=== PATIENT | female | born 1965 | race African-American/Black ===

== ENCOUNTER 2018-03-04 08:56 | Emergency (ER) | payer OTHER ==
[~2018-03-04] VITALS: Ht 180.3 cm; Wt 61.2 kg
--- NOTE | ~2018-03-04 | EKG ---
[place] [address] [facility] [place] [address] ELECTROCARDIOGRAM REPORT Name: ALLEN BEAVERS [facility] [id number] Admission: 03/04/18 Attend Phys: Discharge: Date of : 61 Report #: [id number] THIS REPORT FOR: //name// [facility] ED Test Date: 2018-03-04 Test Time: 09:17:00 Pat Name: ALLEN BEAVERS Department: Room: Gender: F [employer]or [employer] Rod: Kobe ORTEZ : 1965 Requested By: Bernie Bird Order Number: [id number] MD: Nicolás Ruggiero Measurements Intervals [place] Rate: 103 P: 86 SD: 172 QRS: 56 QRSD: 67 T: 45 QT: 314 QTc: 411 Interpretive Statements Sinus tachycardia Right atrial enlargement Consider right ventricular hypertrophy No previous ECG available for comparison Electronically Signed On 03-04-2018 10:24:03 CDT by Nicolás Ruggiero [email or web address] <ELECTRONICALLY SIGNED> By: Nicolás Ruggiero MD, [facility] 03/04/18 1024 [id number] [id number] Nicolás Ruggiero MD, FACC /EPI
[~2018-03-04 08:56] MED LIST: IBUPROFEN 800800 MG PO
[2018-03-04] MEDS ORDERED: ZOFRAN ODT4 MG PO ×2 (09:08→10:24)
[2018-03-04] MEDS ORDERED: PEPCID40 MG PO ×2 (09:08→10:24)
[2018-03-04 09:53] LABS: HEMATOCRIT 30.1 % (37.0-47.0); HEMOGLOBIN 9.2 gm/dL (12.0-15.0); MCH 19.4 pg (26.0-34.0); MCHC 30.5 g/dL (28.0-37.0); MCV 63.7 fL (80.0-100.0); PLATELET COUNT 146 thou/uL (150-400); RBC 4.73 mil/uL (4.20-5.00); RDW 16.3 % (10.5-14.5); WBC 11.3 thou/uL (4.0-11.0)
[2018-03-04 10:06] LABS: ANION GAP 8 mmol/L (7-16); BUN 25 mg/dL (7-18); CALCIUM 10.4 mg/dL (8.5-10.1); CHLORIDE 107 mmol/L (98-107); CO2 22 mmol/L (21-32); CREATININE 1.4 mg/dL (0.6-1.0); POTASSIUM 3.9 mmol/L (3.5-5.1); SODIUM 137 mmol/L (136-145)
[2018-03-04 10:09] LABS: TROPONIN-I < 0.04 ng/mL (<0.06)
[2018-03-04 10:15] LABS: GLUCOSE 107 mg/dL (74-106)
[2018-03-04 10:16] LABS: ABSOLUTE NEUTROPHILS 9.9 thou/uL (1.4-8.2); ANISOCYTOSIS 1+; HYPOCHROMASIA 2+; MICROCYTES 2+; PLATELET ESTIMATE NORMAL
[2018-03-04 11:46] VITALS: BP 96/71
== END 2018-03-04 11:51 | disposition home or self-care (01) ==
LOC: ER 08:56
PROVIDERS: Emergency Medicine
DX: I95.1 Orthostatic hypotension (principal); N28.9 Disorder of kidney and ureter, unspecified

== ENCOUNTER 2021-12-10 06:44 | Emergency (ER) | payer OTHER ==
[~2021-12-10] VITALS: Ht 180.3 cm; Wt 61.2 kg
[~2021-12-10 06:44] MED LIST changes: +PEPCID40 MG PO; +ZOFRAN ODT4 MG PO
--- NOTE | 2021-12-10 07:50 | EKG ---
[address] [place] [address] ELECTROCARDIOGRAM REPORT Name: ALLEN PINEDA [facility] [id number] Admission: 12/10/21 Attend Phys: Discharge: Date of : 61 Report #: [id number] [facility] ED Test Date: 2021-12-10 Test Time: 07:07:39 Pat Name: ALLEN PINEDA Department: Room: Gender: F Whipper: : 1965 Requested By: Dave Salcedo Order Number: [id number] MD: Waqas Torres Measurements Intervals [place] Rate: 71 P: 82 AL: 181 QRS: 31 QRSD: 72 T: 35 QT: 383 QTc: 417 Interpretive Statements Sinus rhythm Consider left atrial enlargement Compared to ECG 03/04/2018 09:17:00 Sinus tachycardia no longer present Electronically Signed On 12-10-2021 7:50:22 [employer] by Waqas Torres [email or web address] <ELECTRONICALLY SIGNED> By: Waqas Torres MD, [facility] 12/10/21 0750 [id number] 6 Waqas Torres MD, FACC /EPI
[2021-12-10] MEDS ORDERED: DOXYCYCLINE 10100 MG PO (08:23)
[2021-12-10 08:46] VITALS: BP 122/78
== END 2021-12-10 08:46 | disposition home or self-care (01) ==
LOC: ER 06:44
DX: J18.9 Pneumonia, unspecified organism (principal); R07.81 Pleurodynia